=== PATIENT | male | born 2000 | race Caucasian/White ===

== ENCOUNTER 2021-07-31 01:32 | Emergency (ER) | payer OTHER ==
[2021-07-31] MEDS ORDERED: IBUPROFEN800 MG PO (03:24)
== END 2021-07-31 03:36 | disposition home or self-care (01) ==
LOC: FER 01:32
DX: S06.0X0A Concussion without loss of consciousness, initial encounter (principal); F17.290 Nicotine dependence, other tobacco product, uncomplicated; Z88.0 Allergy status to penicillin; W10.9XXA Fall (on) (from) unspecified stairs and steps, initial encounter; Y92.89 Other specified places as the place of occurrence of the external cause; Y99.0 Civilian activity done for income or pay
CPT/HCPCS: 70450; J7512